=== PATIENT | male | born 1980 | race Caucasian/White ===

== ENCOUNTER 2024-02-08 11:13 | Emergency (ER) | payer SELFPAY ==
[2024-02-08] MEDS ORDERED: Lorazepam 2 MG/ML VIAL ONE (11:57)
[2024-02-08] MEDS ORDERED: Ketorolac Tromethamine 30 MG (1 mL) VIAL ONE (11:57)
[2024-02-08] MEDS ORDERED: predniSONE 20 MG TAB ONE (12:49)
== END 2024-02-08 13:50 | disposition home or self-care (01) ==
LOC: NAV ERS 11:13
DX: M54.12 Radiculopathy, cervical region (principal); F17.210 Nicotine dependence, cigarettes, uncomplicated
CPT/HCPCS: 96372; 99283; J1885; J2060; J7512